=== PATIENT | female | born 1990 | race Caucasian/White ===

== ENCOUNTER 2019-12-21 06:33 | Day surgery (SDC) | payer BC ==
[~2019-12-21] VITALS: Ht 167.6 cm; Wt 90.3 kg
[~2019-12-21 06:33] MED LIST: IRON 100 PLUS1 EACH PO; KEFLEX500 MG PO; MULTI VITAMIN1 EACH PO; OSTERA TABLET1 EACH PO
--- NOTE | 2019-12-21 09:18 | NUR ---
12/21/19 0918 Sheets,Shellie 0906 PT ARRIVED TO PACU ON 6L VIA MASK WITH ORAL AIRWAY IN PLACE. RESP EVEN AND UNLABORED. VSS. 0913 PT WOKE TO TACTILE STIMULI AND OPENS MONTH ON COMMAND, ORAL AIRWAY REMOVED. PT REORIENTED TO PACU AND DENIES PAIN. 0916 O2 MASK REMOVED.
[2019-12-21] MEDS ORDERED: IBUPROFEN600 MG PO (09:35)
[2019-12-21] MEDS ORDERED: TYLENOL EXTRA500 MG PO (09:35)
[2019-12-21] MEDS ORDERED: OXYCODON-ACETA1 EAC2 PO (09:35)
--- NOTE | 2019-12-21 09:59 | NUR ---
PT IS ALERT, ORIENTED AND SITTING UP WATCHING TV. PT SEEMS PREPARED, QUESTIONS ASKED AND ANSWERED. PT'S MOTHER WILL BE PICKING HER UP. PT DID REQUEST PRAYER.
--- NOTE | 2019-12-21 10:05 | NUR ---
PT IS BACK TO FROM PACU. SHE IS DROWSY, BUT ABLE TO ANSWER QUESTIONS APPROPRIATELY. CALL LIGHT WITHIN REACH. WATER ON BEDSIDE TABLE. NO ADDITIONAL NEEDS AT THIS TIME.
--- NOTE | 2019-12-21 11:05 | NUR ---
PT IS REPORTS MANAGEABLE PAIN. TOLERATING WATER. EATING CRACKERS. ABLE TO GET UP AND USE THE RESTROOM. CALL LIGHT WITHIN REACH. NO ADDITIONAL NEEDS.
--- NOTE | 2019-12-21 12:06 | NUR ---
PT IS REPORTING MINIMAL PAIN. TOLERATING FOOD AND LIQUIDS. CALL LIGHT WITHIN REACH. SPOKE WITH MOM ON THE PHONE EARLIER, SHE WILL BE HERE TO PICK PT UP AT 1245. NO ADDITIONAL NEEDS AT THIS TIME.
--- NOTE | 2019-12-21 13:42 | NUR ---
LE 1250: PT IS GIVEN VERBAL DC INSTRUCTIONS, SHE VERBALIZES UNDERSTANDING. QUESTIONS ARE ASKED AND ANSWERED.
--- NOTE | 2019-12-22 09:34 | OR ---
[facility] [address] [place], [place] [address] Signed DATE OF OPERATION: 12/21/2019 SURGEON: Nelida Sol MD PREOPERATIVE DIAGNOSIS: Chronic acalculous cholecystitis. POSTOPERATIVE DIAGNOSIS: Chronic acalculous cholecystitis PROCEDURES: 1. Laparoscopic cholecystectomy with intraoperative cholangiogram. 2. Surgeon-directed fluoroscopy. ANESTHESIA: General endotracheal; Rhiannon Duque CRNA, and local 20 mL of 0.25% Marcaine with epinephrine. 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 She has been having progressive right upper abdominal pain and postprandial nausea over time. She was evaluated by Jigna Us, her primary care provider. The gallbladder ultrasound which was normal. A subsequent CCK HIDA test performed on october 25, 2019 showed an ejection fraction of 59%, but with reproduction of her right upper abdominal symptoms. It is noted that fatty foods that she episodically continues to ingest produces her symptoms as well. She is very likely to have chronic acalculous cholecystitis and on that basis is admitted at this time to undergo cholecystectomy preferably by laparoscopic approach. The risks of bleeding, infection, bile duct injury, need for open procedure and importantly failure to cure her symptoms have all been reviewed. She understands and wished to proceed. FINDINGS: Indeed the gallbladder was chronically inflamed. Once excised, the mucosa had typical appearance of chronic acalculous cholecystitis. There were no stones and no sign of neoplasm. Cholangiogram was normal. The liver was normal. There were no other findings of concern. DESCRIPTION OF PROCEDURE: The patient was brought to the operating room, given a general endotracheal anesthetic. Preoperative antibiotic Ancef was given and sequential compression device stockings used Electronically Signed By: NELIDA SOL MD 12/22/19 0934 PATIENT NAME: LUIS ALBERTO DAVENPORT OPERATIVE REPORT DATE OF : 89 REPORT #: [id number] PHYSICIAN: NELIDA SOL MD PCP: JIGNA US PA-C REPORT IS CONFIDENTIAL AND NOT TO BE RELEASED WITHOUT AUTHORIZATION [facility] [address] [place], [place] [address] Signed and heparin subcutaneously administered. The abdomen was prepared with a Betadine based solution and draped sterilely. An infraumbilical incision made and using an open Betsy cannula technique, the abdomen entered and pneumoperitoneum achieved to level 14 mmHg of carbon dioxide gas. Intraabdominal inspection showed no sign of ascites or carcinomatosis. The gallbladder was obscured from view initially. The liver appeared normal. Three additional trocars were placed in usual configuration in the subxiphoid, right midclavicular, and right anterior axillary line. The gallbladder was elevated and retracted more fully allowing for visualization of the infundibulum. The infundibulum of gallbladder was grasped and retracted laterally and using blunt electrocautery dissection, the triangle of Calot was dissected free ultimately identifying well the cystic duct as well as the cystic arterial branches. Chronic inflammatory change was noted. There was no sign of enlargement of a pericholecystic lymph node or other findings. The cystic duct was well identified, a clip was applied across gallbladder cystic duct junction. A transverse choledochotomy was made in the cystic duct and Egress of clear bile was noted upon retrograde milking of the duct. Using an Harman type cholangiocatheter, intraoperative cholangiography was undertaken showing free flow of contrast in biliary tree with prompt emptying into the duodenum. There was no sign of biliary anomaly or abnormality. The catheter was removed and the cystic duct was triply clipped and divided and gallbladder dissected free in a retrograde fashion using electrocautery. The gallbladder was extracted through the infraumbilical port site and opened on the back table and found to have chronic inflammatory changes of mucosa. No sign of neoplasm and no stones. Irrigation was undertaken with the subhepatic space. There was no sign of bile leak, bleeding or other problems. The trocars were removed under direct visualization. As there was some oozing at the epigastric port, a Aquiles Kd closure technique was used to secure the fascia bleeding and 0 Vicryl suture was used for this purpose. Some cautery was applied to the right upper quadrant 5 mm port site as well with good hemostasis ultimately noted. Irrigation was undertaken of subcutaneous spaces. The infraumbilical fascial incision was reapproximated with interrupted 0 Vicryl suture. A 20 mL of 0.25% Marcaine with epinephrine was injected locally. The skin was closed with interrupted 3-0 Vicryl. Steri-Strips were applied. The patient was ultimately extubated and transferred to the recovery room in good condition having suffered no complications. Sponge, needle, and counts were as correct x3. MD ED Mcneal/RAMONAL /[id number] Electronically Signed By: NELIDA SOL MD 12/22/19 0934 PATIENT NAME: LUIS ALBERTO DAVENPORT OPERATIVE REPORT DATE OF : [birth year] REPORT #: [id number] PHYSICIAN: NELIDA SOL MD PCP: JIGNA US PA-C REPORT IS CONFIDENTIAL AND NOT TO BE RELEASED WITHOUT AUTHORIZATION [address] [place] [address] Signed cc: Jigna Us PA-C Copies: JIGNA US PA-C ~ Electronically Signed By: NELIDA SOL MD 12/22/19 0934 PATIENT NAME: LUIS ALBERTO DAVENPORT OPERATIVE REPORT DATE OF : [birth year] REPORT #: [id number] PHYSICIAN: NELIDA SOL MD PCP: JIGNA US PA-C REPORT IS CONFIDENTIAL AND NOT TO BE RELEASED WITHOUT AUTHORIZATION
--- NOTE | 2019-12-24 14:00 | PATH ---
[facility] [address] [place], [place] [address] Signed SPECIMEN(S): A GALLBLADDER SPECIMEN SOURCE: A. GALLBLADDER CLINICAL HISTORY: Chronic cholecystitis. FINAL PATHOLOGIC DIAGNOSIS: Gallbladder, cholecystectomy: - Mild chronic cholecystitis with cholesterolosis. NAL:cml:C2NR MICROSCOPIC EXAMINATION: Histologic sections of all submitted blocks are examined by light microscopy. These findings, together with the gross examination, support the pathologic diagnosis. GROSS DESCRIPTION: The specimen, labeled "BECKA, gallbladder," is received in formalin and consists of Specimen: Previously opened gallbladder. Dimensions: 5.5 cm in length and 4.1 cm in inner circumference. Serosa: Dark green and smooth. Cystic Duct: Unobstructed. Calculi: No calculi identified in the gallbladder or within the container. Mucosa: Dark green and velvety. Wall thickness: 0.2 cm. Lymph node: No pericystic lymph nodes are grossly identified. Additional: None. Factory Laborer sections are submitted in cassette (A1). JS (under the direct supervision of a pathologist) The Gross Description was prepared using a voice recognition system. The report was reviewed for accuracy; however, sound-alike word errors, addition and/or deletions may occur. If there is any question about this report, please contact Client Services. PERFORMING LABORATORY: The technical component was performed by [employer], [address] [place] [id number] (Company Dancer: Dorinda Wu MD; CLIA# [id number]). Professional interpretation was performed by PATIENT NAME: LUIS ALBERTO DAVENPORT PATHOLOGY DATE OF : [birth year] REPORT #: [id number] PHYSICIAN: LESLYE PATHOLOGY PCP: TONE BENZ PA-C REPORT IS CONFIDENTIAL AND NOT TO BE RELEASED WITHOUT AUTHORIZATION [facility] [address] [place], [place] [address] Signed [facility], [facility], [address] [facility], [facility] [address], [place] [address] (CLIA# [id number]). Diagnostician: Rayne Enriquez MD Pathologist Electronically Signed 12/24/2019 Copies: ~ PATIENT NAME: LUIS ALBERTO DAVENPORT PATHOLOGY DATE OF : [birth year] REPORT #: [id number] PHYSICIAN: LESLYE PATHOLOGY PCP: TONE BENZ PA-C REPORT IS CONFIDENTIAL AND NOT TO BE RELEASED WITHOUT AUTHORIZATION
== END 2019-12-21 13:15 | disposition home or self-care (01) ==
LOC: DS 06:33
PROVIDERS: Surgery
PROC: BF13YZZ Fluoroscopy of Gallbladder and Bile Ducts using Other Contrast (ICD-10-PCS; 2019-12-21)
PROC: 0FT44ZZ Resection of Gallbladder, Percutaneous Endoscopic Approach (ICD-10-PCS; principal; 2019-12-21 06:45)
DX: K81.1 Chronic cholecystitis (principal); K21.0 Gastro-esophageal reflux disease with esophagitis; D64.9 Anemia, unspecified; E66.01 Morbid (severe) obesity due to excess calories; Z68.32 Body mass index [BMI] 32.0-32.9, adult; Z79.899 Other long term (current) drug therapy
CPT/HCPCS: 00790; 74300; J0690; J1100; J1644; J1885; J2001; J2250; J2300; J2405; J2704; J3475; J7121; Q9967

== ENCOUNTER 2024-06-20 04:32 | Emergency (ER) | payer BC ==
[~2024-06-20] VITALS: Ht 167.6 cm; Wt 111.9 kg
[~2024-06-20 04:32] MED LIST changes: +IBUPROFEN600 MG PO; +OXYCODON-ACETA1 EAC2 PO; +TYLENOL EXTRA500 MG PO
[2024-06-20 05:10] LABS: BASOPHILS 1.3 % (0-2); EOSINOPHILS 1.7 % (0-6); HEMATOCRIT 39.8 % (35.0-50.0); HEMOGLOBIN 13.3 g/dL (12.0-18.0); LYMPHOCYTES 20.3 % (24-44); MCH 29.9 (27-36); MCHC 33.5 g/dl (30-36); MCV 89.2 fl (81-99); MONOCYTES 6.1 % (0-12); NEUTROPHILS 70.6 % (39-80); PLATELET COUNT 309 K/uL (140-440); RBC 4.47 M/ul (4.3-5.7); RDW 13.9 (10.5-15.0)
[2024-06-20 05:11] LABS: BILIRUBIN, URINE NEGATIVE (negative); BLOOD/HGB, URINE MODERATE (Negative); KETONE, URINE NEGATIVE (Negative); LEUK ESTERASE, URINE NEGATIVE (negative); NITRITE, URINE NEGATIVE (negative)
[2024-06-20 05:22] LABS: BACTERIA, URINE 1+ /hpf (negative); CASTS, URINE NONE SEEN \\lpf; CRYSTALS, URINE NONE SEEN (0-1+); EPITHELIAL CELLS, URINE SQUAMOUS 2+ /lpf (0-1+)
[2024-06-20 05:23] LABS: COLLECTION TYPE, URINE CLEAN CATCH; REFLEX CULTURE, URINE No (No)
[2024-06-20 05:25] LABS: ALBUMIN 3.6 g/dL (3.4-5.0); ALBUMIN/GLOBULIN RATIO 0.9 (1.1-2.4); BILIRUBIN, TOTAL 0.3 ng/dL (0.2-1.0); BUN/CREATININE RATIO 10.67 (6.0-28.6); CALCIUM 10.2 mg/dL (8.5-10.1); CREATININE, SERUM 1.03 mg/dL (0.55-1.02); MAGNESIUM 1.8 mg/dL (1.8-2.4); PROTEIN, TOTAL 7.6 g/dL (6.4-8.2)
[2024-06-20] MEDS ORDERED: IBUPROFEN 800 MG TAB PO ONE (06:15)
[2024-06-20] MEDS ORDERED: ACETAMINOPHEN 500 MG TAB PO ONE (06:30)
[2024-06-20] MEDS ORDERED: TOPAMAX25 MG PO (06:51)
[2024-06-20] MEDS ORDERED: FLONASE ALLERG9.9 ML NAS (06:51)
[2024-06-20] MEDS ORDERED: TOPIRAMATE 25 MG TAB PO ONE (07:00)
[2024-06-20 07:04] VITALS: BP 133/99
--- NOTE | 2024-06-20 23:01 | EKG ---
[facility] [address] [facility] [place] [address] Signed Normal sinus rhythm with sinus arrhythmia Normal ECG No previous ECGs available Confirmed by Kvng Robertson MD () on 06/20/2024 11:01:31 PM Electronically Signed By: KVNG ROBERTSON MD 06/20/242300 PATIENT NAME: LUIS ALBERTO CARREON Electrocardiogram DATE OF : 89 PHYSICIAN: KVNG ROBERTSON MD REPORT #: [id number] REPORT IS CONFIDENTIAL AND NOT TO BE RELEASED WITHOUT AUTHORIZATION
== END 2024-06-20 07:01 | disposition home or self-care (01) ==
LOC: ED 04:32
PROVIDERS: Internal Medicine
DX: U07.1 COVID-19 (principal); G93.2 Benign intracranial hypertension; J32.9 Chronic sinusitis, unspecified; M79.10 Myalgia, unspecified site; Z88.0 Allergy status to penicillin; Z88.8 Allergy status to other drugs, medicaments and biological substances
CPT/HCPCS: 36415; 70450; 71045; 80053; 81001; 83735; 84484; 84703; 85025; 85379; 93005; 93010; 99284-25; A9270